=== PATIENT | male | born 1930 | race African-American/Black ===

== ENCOUNTER 2017-04-19 07:17 | Outpatient (CLI) | payer MEDICARE ==
--- NOTE | 2017-04-19 10:36 | Cat Scan Report ---
CT scan of chest without IV contrast: History: COPD. Findings: No endobronchial or mediastinal mass. No mediastinal, hilar or axillary adenopathy. Lymph nodes identified in the mediastinum appear less than 1 cm in diameter. No pleural or pericardial effusion. Chronic interstitial fibrosis bilaterally being more pronounced in the lower lobes with evidence of mild bronchiectasis lower lobes. There is reticular changes with honeycombing noted in the lower lobes. No consolidation or mass. Minimal pleural thickening. Impression: Lymph node in the mediastinum probably reactive. Chronic interstitial lung changes bilaterally/fibrosis with bronchiectatic changes and honeycombing lower lobes.
== END 2017-04-19 07:18 | disposition home or self-care (01) ==
LOC: CT 07:17
PROVIDERS: ATTEND Internal Medicine Pulmonary Disease
DX: J44.9 Chronic obstructive pulmonary disease, unspecified (principal); J84.10 Pulmonary fibrosis, unspecified
CPT/HCPCS: 71250

== ENCOUNTER 2017-09-20 07:38 | Outpatient (CLI) | payer MEDICARE ==
--- NOTE | 2017-09-20 08:36 | Cat Scan Report ---
CT CHEST WITHOUT CONTRAST: HISTORY: Bronchiectasis. COMPARISON: 04/19/17. TECHNIQUE: Helical CT in 1.25mm intervals without IV contrast. Sagittal and coronal reformatted images. FINDINGS: Thyroid gland: Normal. Tracheobronchial tree: Mild cylindrical bronchiectasis in both lower lobes has increased slightly since the previous exam. For instance a left lower lobe bronchiole has increased from 5.3 mm in diameter to 6.6 mm in diameter. The middle lobes and upper lobes appear unaffected. . Esophagus: Normal. Heart: Normal. Pericardium: Normal. Mediastinum: There are a few scattered paratracheal lymph nodes measuring up to 1.1 cm. Focal calcifications and one lymph node suggest chronic granulomatous disease calcified granuloma in the right middle lobe is also noted. No suspicious adenopathy has developed. Lung [place]: There is moderate subpleural consolidation in both posterior lower lobes on today's exam which has increased by 25-50% since the previous exam. This may represent chronic consolidation although infectious infiltrates are not entirely excluded. Mild peribronchial infiltration has developed in the posterior right upper lobe. There are mild to moderate underlying centrilobular emphysematous changes. No evidence for suspicious nodule or mass. Pleural Spaces: Normal. Musculoskeletal: Mild osteopenia is suspected. Mild thoracic spondylosis. No fracture or suspicious bony lesion. IMPRESSION: Mild to moderate emphysematous changes are identified. Mild to moderate cylindrical bronchiectasis in both lower lobes appears slightly increased since 04/19/17. Areas of subpleural consolidation have increased in the posterior lower lobes bilaterally which probably represents a chronic process. Chronic granulomatous disease.
== END 2017-09-20 07:39 | disposition home or self-care (01) ==
LOC: CT 07:38
PROVIDERS: ATTEND Internal Medicine Pulmonary Disease
DX: J47.0 Bronchiectasis with acute lower respiratory infection (principal); J84.10 Pulmonary fibrosis, unspecified; D71 Functional disorders of polymorphonuclear neutrophils; R91.8 Other nonspecific abnormal finding of lung field; M47.894 Other spondylosis, thoracic region
CPT/HCPCS: 71250